=== PATIENT | male | born 2000 | race Two or more races ===

== ENCOUNTER 2023-09-15 00:11 | Emergency (ER) | payer OTHER ==
[~2023-09-15] VITALS: Ht 190.5 cm; Wt 112.9 kg
[2023-09-15 00:27] VITALS: BP 163/79; TEMP 98.1; O2SAT 97
== END 2023-09-15 00:33 ==
LOC: ER 00:19
DX: S71.131D Puncture wound without foreign body, right thigh, subsequent encounter (principal); W34.00XD Accidental discharge from unspecified firearms or gun, subsequent encounter